=== PATIENT | female | born 1960 | race Caucasian/White ===

== ENCOUNTER 2016-10-09 11:15 | Emergency (ER) | payer OTHER ==
[~2016-10-09] VITALS: Ht 160 cm; Wt 66.1 kg
[2016-10-09 11:19] VITALS: Ht 160 cm; Wt 66.1 kg
[2016-10-09] MEDS ORDERED: GUAI-637 PO (13:34)
[2016-10-09] MEDS ORDERED: CETI10CA PO (13:34)
[2016-10-09] MEDS ORDERED: FLUT9.9S NASAL (13:34)
[2016-10-09 13:55] VITALS: BP 132/78; PULSE 79; RESP 18; TEMP 98.1
--- NOTE | 2016-10-10 08:05 | ERD ---
ER Documentation Chief Complaint Date/Time DATE: 10/10/16 TIME: 08:00 Chief Complaint pt bib self with c/o cough for a few days HPI This is a 55-year-old female presenting to the emergency department for cough and nasal congestion 1 week. Patient states cough is dry nonproductive. patient has rhinitis and rhinorrhea. No sore throat or difficulty swallowing. No chest pain, shortness of breath, difficulty breathing or wheezing. No fevers or chills. No vomiting or abdominal pain. Patient is currently homeless. ROS All systems reviewed and are negative except as per history of present illness. Medications Home Meds Active Scripts Guaifenesin* (Robitussin*) 100 Mg/5 Ml Syrup, 100 MG PO Q4H Y for COUGH, #120 ML Prov:CARYN PARRISH NP 10/09/16 Cetirizine Hcl* (Zyrtec*) 10 Mg Capsule, 10 MG PO DAILY, #10 TAB.CHEW Prov:CARYN PARRISH NP 10/09/16 Fluticasone Propionate (Flonase Allergy Relief) 9.9 Ml [place].susp, 1 SPRAY NASAL BID, #1 BOTTLE TO EACH NOSTRIL Prov:CARYN PARRISH NP 10/09/16 Allergies Allergies: Coded Allergies: Opioids - Morphine Analogues (Verified Allergy, Severe, 10/09/16) codeine (Verified Allergy, Mild, 10/09/16) Uncoded Allergies: TREE NUTS (Allergy, Unknown, 10/09/16) PMhx/Soc History of Surgery: Yes (LT LEG) Anesthesia Reaction: No Hx Neurological Disorder: No Hx Respiratory Disorders: No Hx Cardiac Disorders: No Hx Psychiatric Problems: Yes (BULIMIA) Hx Miscellaneous Medical Probl: Yes (KNEE ISSUES, BACK MASS) Hx Alcohol Use: Yes (OOC) Hx Substance Use: No Hx Tobacco Use: Yes Smoking Status: Current every day smoker Physical Exam Vitals Vital Signs Date Time Temp Pulse Resp B/P Pulse Ox O2 Delivery O2 Flow Rate FiO2 10/09/16 13:55 98.1 79 18 132/78 98 Room Air 10/09/16 11:19 98.1 84 18 133/84 98 Physical Exam Const: No acute distress, alert Head: Atraumatic Eyes: Normal Conjunctiva ENT: Normal External Ears, Nose and Mouth. TMs normal bilaterally. No erythema or exudate to posterior pharynx. Neck: Full range of motion..~ No meningismus. Resp: Clear to auscultation bilaterally. No wheezing, rhonchi or crackles. Cardio: Regular rate and rhythm, no murmurs Abd: Soft, non tender, non distended. Normal bowel sounds Skin: No petechiae or rashes Back: No midline or flank tenderness Ext: No cyanosis, or edema Neur: Awake and alert Psych: Normal Mood and Affect Procedures/MDM ED COURSE: The patient was stable throughout ED course. I kept the patient and/or family informed of laboratory and diagnostic imaging results throughout the ED course. MDM: This is a 55-year-old female presenting to the emergency department for cough and nasal congestion 1 week. Lung and ENT exam are unremarkable. No signs or symptoms of respiratory distress. Patient is talking in complete sentences. No fevers or chills. Patient states she is currently homeless. director of professional services consult provided. Patient was given resources to homeless shelters in the area. Patient remains hemodynamically stable. Appears calm and appropriate for discharge. Low suspicion for pneumonia, pleural effusion, pneumothorax, strep pharyngitis or otitis media. Patient likely has URI, viral. Patient is appropriate for outpatient management will be given prescription for Flonase, Zyrtec and Robitussin. Instructed patient to follow-up with primary care provider in the next 2-3 days for reassessment. Resources provided. Return to ED for any high fever, chest pain, difficulty breathing, shortness breath, wheezing, vomiting, diarrhea, abdominal pain or any new or worsening symptoms. Patient verbalizes understanding. All questions answered at discharge. Departure Diagnosis: Primary Impression: URI (upper respiratory infection) URI type: unspecified viral URI Qualified Code: J06.9 - Viral upper respiratory tract infection Condition: Stable Patient Instructions: Uri, Viral, No Abx (Adult) Referrals: JOSEFINA WHITLOCK MD (PCP) [facility] YOU HAVE RECEIVED A MEDICAL SCREENING EXAM AND THE RESULTS INDICATE THAT YOU DO NOT HAVE A CONDITION THAT REQUIRES URGENT TREATMENT IN THE EMERGENCY DEPARTMENT. FURTHER EVALUATION AND TREATMENT OF YOUR CONDITION CAN WAIT UNTIL YOU ARE SEEN IN YOUR DOCTORS OFFICE WITHIN THE NEXT 1-2 DAYS. IT IS YOUR RESPONSIBILITY TO MAKE AN APPOINTMENT FOR FOLOW-UP CARE. IF YOU HAVE A PRIMARY DOCTOR --you should call your primary doctor and schedule an appointment IF YOU DO NOT HAVE A PRIMARY DOCTOR YOU CAN CALL OUR PHYSICIAN REFERRAL HOTLINE AT IF YOU CAN NOT AFFORD TO SEE A PHYSICIAN YOU CAN CHOSE FROM THE FOLLOWING [facility] [address] [place] [facility] [address] [facility] [address] [facility] [address] [facility] [address] [facility] [facility] [address] [facility]. [facility] YOU HAVE RECEIVED A MEDICAL SCREENING EXAM AND THE RESULTS INDICATE THAT YOU DO NOT HAVE A CONDITION THAT REQUIRES URGENT TREATMENT IN THE EMERGENCY DEPARTMENT. FURTHER EVALUATION AND TREATMENT OF YOUR CONDITION CAN WAIT UNTIL YOU ARE SEEN IN YOUR DOCTORS OFFICE WITHIN THE NEXT 1-2 DAYS. IT IS YOUR RESPONSIBILITY TO MAKE AN APPOINTMENT FOR FOLOW-UP CARE. IF YOU HAVE A PRIMARY DOCTOR --you should call your primary doctor and schedule and appointment IF YOU DO NOT HAVE A PRIMARY DOCTOR YOU CAN CALL OUR PHYSICIAN REFERRAL HOTLINE AT . IF YOU CAN NOT AFFORD TO SEE A PHYSICIAN YOU CAN CHOSE FROM THE FOLLOWING [facility]: [facility] [address] [place] [address] [facility] [address] [place] [address] [facility] [address] [place] [address] Additional Instructions: Call your primary care doctor TOMORROW for an appointment during the next 2-3 days.See the doctor sooner or return here if your condition worsens before your appointment time. Return to ED for any high fever, chest pain, difficulty breathing, shortness breath, wheezing, vomiting, diarrhea, abdominal pain or any new or worsening symptoms. CARYN PARRISH NP Oct 10, 2016 08:05
== END 2016-10-09 13:55 | disposition home or self-care (01) ==
LOC: FTE 11:15
DX: J06.9 Acute upper respiratory infection, unspecified (principal); F17.210 Nicotine dependence, cigarettes, uncomplicated
CPT/HCPCS: 99283

== ENCOUNTER 2018-10-29 22:53 | Emergency (ER) | payer MEDICARE, OTHER ==
[~2018-10-29] VITALS: Ht 157.5 cm; Wt 59.1 kg
[~2018-10-29 22:53] MED LIST: GUAI120S26 PO; IBUP-1541 PO; LACT1CAP28 PO; MUPI22OI2 TOP; NICO-544 TRANSDERM
[2018-10-29 22:54] VITALS: Ht 157.5 cm; Wt 59.1 kg
== END 2018-10-30 01:40 | disposition left against medical advice (07) ==
LOC: E/R 22:53
DX: Z53.21 Procedure and treatment not carried out due to patient leaving prior to being seen by health care provider (principal)